=== PATIENT | male | born 1960 | race African-American/Black ===

== ENCOUNTER → 2017-07-16 | Outpatient (CLI) | payer OTHER ==
--- NOTE | 2017-07-17 11:21 | RADIOLOGY IMAGING REPORT ---
FACILITY: [facility] PATIENT NAME: Leonardo Guerrero : 1960 MR: [id number] V: [id number] EXAM DATE: [id number] ORDERING PHYSICIAN: NEGRA HENRY TECHNOLOGIST: [place] [facility] [place] Leonardo Guerrero : 1960 Visit/Account:[id number] Date of Sevice: 07/16/2017 EXAMINATION: Single Isotope SPECT Imaging with Exercise and Gated SPECT Imaging DATE OF EXAMINATION: July 16, 2017 DATE OF INTERPRETATION: July 17, 2017 REQUESTING PHYSICIAN: NEGRA HENRY INDICATION: The patient is a 56-year-old male evaluated for chest pain. PROCEDURE: After informed consent the patient received an intravenous injection of 12.3 mCi of Tc-9 9m sestamibi followed at the appropriate time interval by rest imaging. The patient then exercised a ccording to the standard James protocol for 9 minutes achieving 10 METS. Resting heart rate was 56 b pm with a peak heart rate of 142 bpm which is 85 % of maximal predicted heart rate for age. Blood p ressure at rest was 141 / 100; blood pressure during exercise was 212 / 86. There was no chest pain during exercise. Exercise was discontinued because of fatigue. Baseline EKG demonstrates normal sin us rhythm. There were [address] depression consistent with EKG changes of ischemia at pe ak exercise. Approximately one minute and 30 seconds prior to the termination of exercise, the patie nt received an intravenous injection of 31.5 mCi of Tc-99m sestamibi followed by stress imaging. RAW DATA: Examination of the summed raw data revealed a good quality study. MYOCARDIAL PERFUSION: The tomographic images demonstrate a mild decrease in myocardial perfusion tra cer uptake in the basal to mid inferior wall seen on both stress and rest imaging that improves with prone imaging and has normal wall motion. No reversible defect noted. GATED IMAGES: The gated images demonstrate an ejection fraction 67% with no wall motion abnormality IMPRESSION: 1. Normal myocardial perfusion scan with no evidence of ischemia. The mild fixed defect in the infer ior wall is likely diaphragm attenuation artifact. 2. Normal myocardial perfusion scan. 3. Normal LV systolic function; LVEF 67%. 4. Based on the results of this exam, the patient appears to be at low risk for future cardiovascular events. Report Dictated By: Conchita Soto at 07/17/2017 11:14 AM Report E-Signed By: Conchita Soto at 07/17/2017 11:17 AM WSN:[id number]
== END ==
LOC: NUC 07:01
PROVIDERS: ATTEND Family Medicine
DX: R07.9 Chest pain, unspecified (principal)
CPT/HCPCS: 78452; 93017; A9500